=== PATIENT | female | born 1940 | race Hispanic/Latino ===

== ENCOUNTER 2019-04-05 07:17 | Observation (INO) | payer MEDICARE ==
[2019-03-29 15:01] LABS: BASOPHILS % 0.4 % (0.0-1.0); EOSINOPHILS # (AUTO) 0.2 (0.0-0.4); EOSINOPHILS % 4.1 % (0.0-6.0); HEMATOCRIT 37.6 % (34.2-44.1); HEMOGLOBIN 12.2 g/dL (12.0-16.0); LYMPHOCYTES # (AUTO) 2.2 (1.0-3.2); LYMPHOCYTES % 39.4 % (18.0-39.1); MEAN CORPUSCULAR HEMOGLOBIN 30.4 pg (28-32); MEAN CORPUSCULAR HGB CONC 32.4 g/dL (31-35); MEAN CORPUSCULAR VOLUME 93.8 fL (81-99); MONOCYTES # (AUTO) 0.4 (0.2-0.8); MONOCYTES % 7.7 % (4.4-11.3); NEUTROPHILS # (AUTO) 2.7 (2.1-6.9); NEUTROPHILS % 48.2 % (38.7-80.0); PLATELET COUNT 165 x10e3/uL (140-360); RED BLOOD COUNT 4.01 x10e6/uL (3.6-5.1); RED CELL DISTRIBUTION WIDTH 13.3 % (11.7-14.4)
[2019-03-29 15:14] LABS: ANION GAP 11.2 mmol/L (8-16); BLOOD UREA NITROGEN 25 mg/dL (7-26); BUN/CREATININE RATIO 38 (6-25); CALCIUM 9.3 mg/dL (8.4-10.2); CARBON DIOXIDE 28 mmol/L (22-29); CHLORIDE 106 mmol/L (98-107); CREATININE, SERUM 0.66 mg/dL (0.57-1.11); EST GLOMERULAR FILTRATION RATE > 60 ML/MIN (60-); GLUCOSE 108 mg/dL (74-118); POTASSIUM 4.2 mmol/L (3.5-5.1); SODIUM 141 mmol/L (136-145)
--- NOTE | 2019-03-29 15:33 | Diagnostic Imaging Report ---
EXAMINATION: CHEST 2 VIEWS INDICATION: Pre-operative COMPARISON: None FINDINGS: LINES/TUBES:None LUNGS:The lungs are hyperinflated. No focal consolidation or pulmonary edema. Elevation of the left hemidiaphragm. PLEURA:No pleural effusion or pneumothorax. MEDIASTINUM:The cardiomediastinal silhouette appears normal in size and shape. Atherosclerotic calcifications of the thoracic aorta. BONES/SOFT TISSUES:No acute osseous injury. ABDOMEN:No free air under the diaphragm. IMPRESSION: Hyperinflated lungs. No focal pneumonia or pulmonary edema. Signed by: Karly Seaman MD on 03/29/2019 3:29 PM
[~2019-04-05 07:17] MED LIST: ACTOS15 MG PO; ATORVASTATIN CA20 MG PO; EXCEDRIN EXTRA1 EAC1 PO; OLMESARTAN-HCT1 EACH PO; ULTRAM 50MG50 MG PO
--- OUTSIDE RECORDS SUMMARY | 2019-04-05 07:19 | XMS REPORT ---
Author [facility] Address Unknown Phone Unavailable Care Team Providers Care Guest Service Representative Name Role Phone KIMBERLY BRAMBILA Unavailable Unavailable Problems This patient has no known problems. Allergies, Adverse Reactions, Alerts This patient has no known allergies or adverse reactions. Medications This patient has no known medications. Results Test Description Test Time Test Comments Text Results Atomic Results Result Comments CHEST 2 VIEWS 2019-03-29 15:29:00 [facility] [address] [place] [address] Patient Name: ARTURO PATHAK MR #: [id number] : 1940 Age/Sex: 78/F Req #: [id number] [facility] Physician: Ordered by: KIMBERLY BRAMBILA MD Report #: [id number] Location: OR Room/Bed: Procedure: [id number] DX/CHEST 2 VIEWS Exam Date: 03/29/19 Exam Time: 1520 REPORT STATUS: Signed EXAMINATION: CHEST 2 VIEWS INDICATION: Pre-operative COMPARISON: None FINDINGS: LINES/TUBES:None LUNGS:The lungs are hyperinflated. No focal consolidation or pulmonary edema. Elevation of the left hemidiaphragm. PLEURA:No pleural effusion or pneumothorax. MEDIASTINUM:The cardiomediastinal silhouette appears normal in size and shape. Atherosclerotic calcifications of the thoracic aorta. BONES/SOFT TISSUES:No acute osseous injury. ABDOMEN:No free air under the diaphragm. IMPRESSION: Hyperinflated lungs. No focal pneumonia or pulmonary edema. Signed by: Kenya Seaman MD on 03/29/2019 3:29 PM Dictated By: KENYA SEAMAN MD 1529 Transcribed By: PAIGE on 03/29/19 1529 COPY TO: KIMBERLY BRAMBILA MD
[2019-04-05] MEDS ORDERED: ROPIVACAINE 246.25 MG, EPINEPHRINE HCL 1:1000 1ML 0.5 MG, CLONIDINE HCL 0.08 MG, KETORO... INJ ONE ×5 (07:30)
[2019-04-05] MEDS ORDERED: CELECOXIB 200 MG CAP ONE (07:48)
[2019-04-05] MEDS ORDERED: CEFAZOLIN SOD 1 GM/NS 50ML 100 ML IV ONE (07:49)
[2019-04-05] MEDS ORDERED: DEXAMETHASONE SOD PHOS 10 MG/1 ML VIAL ONE (07:49)
[2019-04-05] MEDS ORDERED: GABAPENTIN 300 MG CAP ONE (07:49)
[2019-04-05] MEDS ORDERED: VANCOMYCIN HCL 500 MG ONE ×2 (09:18→09:35)
[2019-04-05] MEDS ORDERED: TRANEXAMIC ACID 1,000 MG/10 ML ML ONE (09:18)
[2019-04-05] MEDS ORDERED: BACITRACIN 50,000 UNIT VIAL ONE (09:18)
[2019-04-05] MEDS ORDERED: SODIUM CHLORIDE 0.9% 500ML 500 ML ONE (09:35)
[2019-04-05] MEDS ORDERED: HYDROCODONE/APAP 5MG-325MG TAB PO PRN (11:30)
[2019-04-05] MEDS ORDERED: DIPHENHYDRAMINE HCL INJ 50 MG/ML VIAL IM/IV PRN (11:30)
[2019-04-05] MEDS ORDERED: DOCUSATE SODIUM 100 MG CAP PO PRN (11:30)
[2019-04-05] MEDS ORDERED: PROMETHAZINE HCL (IM) 25 MG/ML VIAL IM PRN (11:30)
[2019-04-05] MEDS ORDERED: ACETAMINOPHEN 650 MG SUPP PR PRN (11:30)
[2019-04-05] MEDS ORDERED: ONDANSETRON HCL INJ 2MG/ML 2ML 2 MG/ML VIAL IV PRN (11:30)
[2019-04-05] MEDS ORDERED: FENTANYL CITRATE/PF 100MCG/2 ML INJ ONE ×3 (11:37→20:06)
[2019-04-05] MEDS: ACETAMINOPHEN 1000 MG/100 ML IV SCH ×2 (12:00→17:34)
--- NOTE | 2019-04-05 12:12 | Diagnostic Imaging Report ---
Right knee, 2 views Clinical indication: Postop evaluation, the arthroplasty Comparison: None Findings: AP and lateral views of the right heel obtained. Patient is status post cemented right total knee arthroplasty. Alignment is anatomic. No periprosthetic fractures. Impression: Status post right knee arthroplasty. Alignment anatomic. Signed by: Gilson Silver MD on 04/05/2019 12:08 PM
[2019-04-05] MEDS ORDERED: MORPHINE SULFATE 2 MG/ML SYR 1ML ONE (12:16)
--- NOTE | 2019-04-05 12:21 | NUR ---
RECEIVED TO RM AAOX3 NO DISTRESS NOTED, UPDATED ON POC VOICED UNDERSTANDING, DENIES PAIN AT THIS TIME, R FA 20G NO SS OF INFILTRATION NOTED, DSG TO R KNEE C/D/I, NO OTHER CO VOICED CALL LIGHT INR EACH WILL CONTINUE TO MONITOR
[2019-04-05] MEDS ORDERED: SEVOFLURANE INHAL SOLN 250 ML PEN BTL ONE (13:48)
[2019-04-05] MEDS ORDERED: PROPOFOL IV EMULSION 10 MG/ML 20 ML VIAL ONE (13:48)
[2019-04-05] MEDS ORDERED: LIDOCAINE HCL 2% LOCAL INJ 5 ML SDV VIAL INJ ONE (13:48)
[2019-04-05] MEDS ORDERED: ONDANSETRON HCL INJ 2MG/ML 2ML 2 MG/ML VIAL ONE (13:48)
[2019-04-05] MEDS: SODIUM CHLORIDE 0.9% 1000ML 1,000 ML IV SCH ×2 (14:00→21:16)
[2019-04-05] MEDS ORDERED: DEXTROSE 50% SYRINGE 50 ML IV PRN (14:45)
[2019-04-05 15:20] VITALS: BP 106/62
[2019-04-05] MEDS: ASPIRIN 325 MG TAB PO SCH (16:49)
[2019-04-05] MEDS: CELECOXIB 200 MG CAP PO SCH (16:50)
[2019-04-05] MEDS ORDERED: CELECOXIB 100 MG CAP PO SCH (17:00)
[2019-04-05] MEDS: INSULIN REGULAR, HUMAN 100 UNIT/1 ML 3ML VIAL SQ SCH ×2 (17:10→21:00)
[2019-04-05] MEDS: CEFAZOLIN SOD 1 GM/NS 50ML 50 ML IV SCH (17:11)
[2019-04-05] MEDS ORDERED: ROPIVACAINE 0.5% 5 MG/ML 30 ML SDV ONE (19:20)
[2019-04-05] MEDS ORDERED: LIDOCAINE 2% /EPINEPHRINE 20 ML SDV INJ ONE (19:20)
--- NOTE | 2019-04-05 19:20 | NUR ---
Bedside rounds completed with morning nurse. Pt alert and oriented to name call. lying in bed HOB 60 degrees. c/o mild pain in right TKA. Call light within reach. Family at bedside. Bed low and locked. Will continue to monitor.
[2019-04-05 20:00] VITALS: BP 106/59
[2019-04-05] MEDS ORDERED: MIDAZOLAM HCL 2 MG/2 ML VIAL ONE ×2 (20:04→20:06)
[2019-04-05 21:00] VITALS: BP 106/62
[2019-04-05] MEDS ORDERED: ATORVASTATIN 20 MG TAB PO SCH (21:00)
[2019-04-05] MEDS ORDERED: ZOLPIDEM TARTRATE 5 MG TAB PO PRN (21:00)
[2019-04-05] MEDS: ATORVASTATIN 40 MG TAB PO SCH (21:00)
[2019-04-06] VITALS (8 sets, daily range): BP systolic 104–146; BP diastolic 53–63
[2019-04-06] MEDS: CEFAZOLIN SOD 1 GM/NS 50ML 50 ML IV SCH ×2 (02:00→10:13)
[2019-04-06] MEDS: ACETAMINOPHEN 1000 MG/100 ML IV SCH ×2 (05:40)
[2019-04-06 05:49] LABS: HEMATOCRIT 31.3 % (34.2-44.1); HEMOGLOBIN 10.2 g/dL (12.0-16.0)
[2019-04-06] MEDS: HYDROCODONE/APAP 7.5MG-325MG 1 EA TAB PO PRN ×3 (06:30→16:24)
--- NOTE | 2019-04-06 06:30 | NUR ---
c/o 9/10 pain right knee, admin prn [place], removed carole wrap, drsg clean and dry, applied CPM.
--- NOTE | 2019-04-06 07:00 | NUR ---
RECEIVED PATIENT RESTING IN BED NO S/S OF DISTRESS. BED LOW, WHEELS LOCKED, SIDE RAILS X2. CALL LIGHT IN REACH WILL CONTINUE TO MONITOR PATIENT. CPM IN PLACE.
[2019-04-06] MEDS: SODIUM CHLORIDE 0.9% 1000ML 1,000 ML IV SCH ×2 (07:16→15:51)
[2019-04-06] MEDS: INSULIN REGULAR, HUMAN 100 UNIT/1 ML 3ML VIAL SQ SCH ×4 (07:30→21:00)
[2019-04-06] MEDS: ASPIRIN 325 MG TAB PO SCH ×2 (08:11→16:18)
[2019-04-06] MEDS: PIOGLITAZONE HCL 15 MG TAB PO SCH (08:11)
[2019-04-06] MEDS: CELECOXIB 200 MG CAP PO SCH ×2 (08:12→16:18)
[2019-04-06] MEDS: OLMESARTAN 20 MG TAB PO SCH (08:12)
[2019-04-06] MEDS: HYDROCHLOROTHIAZIDE 25 MG TAB PO SCH (08:12)
--- NOTE | 2019-04-06 11:04 | Consultation ---
DATE OF CONSULTATION: REASON FOR CONSULTATION: Postop medical management. HISTORY OF PRESENT ILLNESS: The patient is a 78-year-old lady, status post right knee arthroplasty for end-stage osteoarthritis of the right knee, who is doing well postoperatively with minimal pain of the right knee and she denies any fever, chills, nausea, vomiting, headache, or shortness of breath. PAST MEDICAL HISTORY: Hyperlipidemia, hypertension, and diabetes. MEDICATIONS: See MAR. ALLERGIES: NONE. SOCIAL HISTORY: Nonsmoker. . Lives at home with her . FAMILY HISTORY: Noncontributory at this time. PHYSICAL EXAMINATION: VITAL SIGNS: Temperature 96.0, pulse 79, blood pressure 110/57, and saturations 92% on room air. GENERAL: She is no apparent distress, lying in bed. NECK: Supple. CARDIOVASCULAR: Regular rate and rhythm. LUNGS: Clear to auscultation bilaterally. ABDOMEN: Good bowel sounds. Soft and nontender. EXTREMITIES: No clubbing or cyanosis. NEUROLOGIC: Moves all extremities x4. ASSESSMENT/PLAN: 1. Anemia. Check a CBC. 2. Right knee pain. Continue with physical therapy and pain control. 3. Diabetes. Continue with current care and monitoring. 4. Hyperlipidemia. Continue with her Lipitor. 5. Hypertension. Continue with her medication. Please see hospital chart for full details. MD BIA Pérez/CATALINA /[id number]
[2019-04-06] MEDS ORDERED: ACETAMINOPHEN 1000 MG/100 ML IV PRN (11:30)
--- NOTE | 2019-04-06 12:41 | NUR ---
Spoke to Ericka rm at [facility]. [phone], [phone]. They have down to deliver tomorrow. Patient has a sit down walker, but per PT that is unsafe. Provided patient with standard walker before dc. Spoke to Liliana at [facility] [phone]. They have Ms. Bernal scheduled to start Tomorrow.
--- NOTE | 2019-04-06 12:43 | NUR ---
Alycia explained to patient and daughter, patient signed, copy to patient, copy to chart
[2019-04-06] MEDS: KETOROLAC TROMETHAMINE 30 MG/ML VIAL IV PRN ×2 (13:08→20:30)
--- NOTE | 2019-04-06 14:40 | NUR ---
Visit made by the Spiritual Care Department Pastoral Visitor, Denisse Gamino. PV provided pastoral presence, hospitality, and supportive listening. Pastoral Visitor informed pt/family of the scope of [employer] and availability. TAYLOR SKAGGS Candle Wrapping Machine Operator Spiritual Care Department O: [phone] Pager: [phone] ([phone] calling from)
--- NOTE | 2019-04-06 19:20 | NUR ---
Bedside rounding completed with morning nurse. Pt alert and oriented to name. Pt lying in bed HOB 45 degrees. Call light within reach. c/o mod right knee pain, repositioned, elevated leg. Bed low and locked. Family at bedside. Will continue to monitor.
[2019-04-06] MEDS: ATORVASTATIN 40 MG TAB PO SCH (21:30)
--- NOTE | 2019-04-06 23:29 | Operative Report ---
DATE OF PROCEDURE: 04/05/2019 SURGEON: Kevon Sheppard MD HELP DESK ANALYST: Sal Sewell, certified PA. PREOPERATIVE DIAGNOSIS: Osteoarthritis, right knee. POSTOPERATIVE DIAGNOSIS: Osteoarthritis, right knee. PROCEDURE: Right total knee arthroplasty. INDICATION: The patient is a 78-year-old lady, who has end-stage osteoarthritis of her right knee. She has failed conservative management and would like to proceed with a right knee replacement. The risks and benefits of the procedure have been discussed. She states she understands and wishes to proceed. DESCRIPTION OF THE PROCEDURE: The patient was brought to the operating room and placed under general anesthetic. She received prophylactic antibiotics, tranexamic acid, and a regional block in the holding area. Her right lower extremity was prepped and draped in a sterile manner. A preoperative time-out was performed. The extremity was exsanguinated and a proximal tourniquet was inflated to 300 mmHg. An anterior incision with a medial parapatellar arthrotomy was performed. Clear synovial fluid was removed from the joint. Soft tissue releases were performed to bring the knee up into flexion with the patella everted. Marginal osteophytes, meniscal remnants, and the cruciate ligaments were sacrificed. A Thornton and NephGyst knee system was used. An extramedullary cutting guide was used to resect the proximal tibia. The tibial baseplate was a size 3. The central fin punch was impacted and attention was directed towards the distal femur. An intramedullary cutting guide was used to resect the distal femur in 6 degrees of valgus and rotation referencing off a combination of landmarks including Whitesides line, the epicondylar axis, and the posterior condyles. The femoral component was a size 4. The anterior and posterior cuts were made. Trial reductions were performed. A 9 mm ultracongruent tibial insert provided appropriate soft tissue balancing in full extension and 90 degrees of flexion. The patella was resurfaced with a 29 mm x 9 mm patellar button. The thickness was checked before and after resurfacing and it was right around 22 mm. Patellar tracking was noted to be concentric. The trial implants were then all removed. A 100 mL premixed pericapsular [place] injection was placed into the surrounding soft tissue. The knee was thoroughly irrigated with a shower tip pulsatile lavage. All bone cuts had been irrigated with a spray mixture of diluted vancomycin and polymyxin spray. The components were cemented into place using a single mix of high viscosity Biomet cement preloaded with antibiotics. Care was taken to remove extravasated cement. The wound was further irrigated while the cement cured. The arthrotomy was then closed after sprinkling 500 mg of vancomycin powder into the joint. #1 Ethibond in a [id number] fashion was used to close the arthrotomy. The knee was put through flexion and extension to ensure a secure closure. The skin was closed with subcuticular Vicryl and mer. A sterile Aquacel bandage and an John wrap were applied. The patient was extubated and transported to the recovery room in stable condition. Blood loss was minimal. All needle and sponge counts were correct. Kevon Sheppard MD DR/CATALINA /[id number]
[2019-04-07] VITALS: BP 117/57
[2019-04-07] MEDS: KETOROLAC TROMETHAMINE 30 MG/ML VIAL IV PRN ×2 (02:30→09:02)
[2019-04-07] MEDS: SODIUM CHLORIDE 0.9% 1000ML 1,000 ML IV SCH ×2 (03:16→13:16)
[2019-04-07 04:00] VITALS: BP 107/55
[2019-04-07 05:50] LABS: HEMATOCRIT 30.8 % (34.2-44.1)
--- NOTE | 2019-04-07 07:00 | NUR ---
RECEIVED PATIENT AMBULATING WITH WALKER TO BATHROOM NO S/S OF DISTRESS. NOTIFIED PATIENT TO USE CALL LIGHT IN BATHROOM IF ASSISTANCE NEEDED.
[2019-04-07] MEDS: INSULIN REGULAR, HUMAN 100 UNIT/1 ML 3ML VIAL SQ SCH ×2 (07:30→11:30)
[2019-04-07 08:17] VITALS: BP 145/73
[2019-04-07] MEDS ORDERED: ONDANSETRON HCL 4 MG ORAL DISINTEGRATING TAB PO PRN (08:30)
[2019-04-07] MEDS: PIOGLITAZONE HCL 15 MG TAB PO SCH (09:02)
[2019-04-07] MEDS: CELECOXIB 200 MG CAP PO SCH (09:02)
[2019-04-07] MEDS: ASPIRIN 325 MG TAB PO SCH (09:02)
[2019-04-07] MEDS: HYDROCHLOROTHIAZIDE 25 MG TAB PO SCH (09:02)
[2019-04-07] MEDS: OLMESARTAN 20 MG TAB PO SCH (09:02)
[2019-04-07] MEDS: HYDROCODONE/APAP 7.5MG-325MG 1 EA TAB PO PRN (09:42)
--- NOTE | 2019-04-07 09:43 | NUR ---
PATIENT COMPLAINT OF PAIN TO IV SITE. REMOVED PATIENTS IV, CATHETER TIP INTACT AND PRESSURE DRESSING APPLIED.
[2019-04-07 10:17] VITALS: BP 145/73
[2019-04-07 12:45] VITALS: BP 142/75
--- NOTE | 2019-04-07 14:05 | NUR ---
PATIENT DISCHARGED FROM FACILITY. PATIENT GATHERED ALL PERSONAL BELONGINGS, DISCHARGE INSTRUCTIONS AND FOLLOW UP INFORMATION. PATIENT LEFT UNIT IN WHEELCHAIR AND WENT HOME VIA PRIVATE AUTO. NO SIGNS OF DISTRESS LEAVING FACILITY
== END 2019-04-07 14:31 | disposition home health service (06) ==
LOC: OR 07:17 → PACU V 11:18 → MED/SURG 12:21
PROVIDERS: ADMIT Specialist; ATTEND Specialist
DX: M17.11 Unilateral primary osteoarthritis, right knee (principal); E11.9 Type 2 diabetes mellitus without complications; K29.70 Gastritis, unspecified, without bleeding; I10 Essential (primary) hypertension; Z90.49 Acquired absence of other specified parts of digestive tract; D64.9 Anemia, unspecified; E78.5 Hyperlipidemia, unspecified; Z79.82 Long term (current) use of aspirin; Z01.810 Encounter for preprocedural cardiovascular examination; Z01.812 Encounter for preprocedural laboratory examination; Z01.811 Encounter for preprocedural respiratory examination; K21.9 Gastro-esophageal reflux disease without esophagitis
CPT/HCPCS: 27447; 36415 ×4; 71046; 73560; 80048; 82948 ×3; 85014 ×2; 85018 ×2; 85025; 86850; 86900; 86920; 93005; 97110; 97116 ×3; 97139 ×2; 97161; 97530 ×2; C1713; G0378 ×3; J0131 ×2; J0171; J0690 ×2; J1100; J1817; J1885 ×3; J2001 ×2; J2250; J2270; J2405; J2704; J2795; J3010; J3370; J7030; J7040